=== PATIENT | female | born 1960 | race Caucasian/White ===

== ENCOUNTER 2016-04-28 09:20 | Emergency (ER) ==
[2016-04-28] MEDS ORDERED: ASPIRIN PO STA (09:41)
--- NOTE | 2016-04-28 09:53 | ED EKG INTERP ---
EKG Interpretation - EKG Time of EKG reading by physician:: 09:32 EKG Read and Signed by:: Lance Correa EKG Interpretation (*Must complete 3 of following elements*): Abnormal Rate: 84 Rhythm: NSR [place]: normal QRS: normal [place] Interval: normal ST Wave: non-specific ST changes
[2016-04-28 10:00] LABS: MANUAL DIFF NEEDED? NO
[2016-04-28 10:02] LABS: BASO% 0.2 % (0.0-0.8); EOS# 0.16 X1000 (0.0-0.7); EOS% 1.4 % (0.0-10.0); HEMATOCRIT 35.9 % (37.0-47.0); LYMPH# 1.01 X1000 (1.2-3.4); LYMPH% 8.8 % (20.5-51.1); MCH 29.1 PG (27-31); MCHC 33.4 g/dL (33-37); MCV 87.1 FL (81-99); MONO# 0.66 X1000 (0.11-0.59); MONO% 5.7 % (1.7-9.3); MPV 10.6 FL (7.4-10.4); NEUT% 83.9 % (42.2-75.2); PLT 195 X1000 (130-400); RBC 4.12 XMIL (4.2-5.4)
[2016-04-28 10:12] LABS: INR 0.95; PROTIME 10.1 Seconds (9.2-11.7); PTT 22.7 Seconds (22.0-36.0)
--- NOTE | 2016-04-28 10:35 | PROVIDER DOCUMENTATION ---
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 She is taking celexa for anxiety and has had a reflux procedure for gerd but syas that this is nothing like her gerd Chest Pain Radiation: reports: arms Quality of Pain: reports: sharp Onset/Duration: abrupt, just prior to arrival Timing: gone now Context/Activities at Onset: reports: none Modifying Factors: improves with: nothing Associated Symptoms: reports: dizziness Nitro Today/Relief: no nitro taken today Aspirin Treatment Today: no aspirin today Prior Chest Pain/Cardiac Workup: reports: no prior chest pain Similar Symptoms Previously?: No Recently Seen Here or By Another Healthcare Provider: No Review of Systems - Adult - REVIEW OF SYSTEMS - ADULT Constitutional: denies: chills, fever Eyes: denies: discharge, blurred vision Ears, Nose, Mouth & Throat: denies: hearing loss, nose pain, throat pain Cardiovascular: denies: chest pain, irregular heart rate, poor circulation Respiratory: denies: chronic cough, hemoptysis Gastrointestinal: denies: abdominal pain, frequent heartburn, rectal bleeding Genitourinary: denies: discharge, urinary retention Musculoskeletal: denies: bone pain, joint pain, muscle weakness Integumentary: denies: hair loss, nail changes, skin sores/ulcer Neurological: denies: headache/migraines, loss of balance, syncope Psychiatric: reports: anxiety Endocrine: denies: goiter, cold intolerance, heat intolerance Hematologic/Lymphatic: denies: low blood count, lymphedema Allergic/Immunologic: denies: eczema, frequent infections, hives Past History - Adult - PAST MEDICAL HISTORY-ADULT Gastrointestinal: reports: GERD - PRIOR SURGERIES/PROCEDURES Surgical/Procedure History: reports: EGD, colonoscopy, hysterectomy, breast, other (reflux surgery) Physical Exam-General - PHYSICAL EXAM-ADULT Initial Vital Signs Reviewed: Yes - CONSTITUTIONAL General Appearance: appears well, alert, no apparent distress - EYES Eyes: PERRL/EOMI, pink conjunctivae - HEAD, EARS, NOSE, MOUTH & THROAT HENMT: normocephalic/atraumatic, moist mucous membranes, normal ENT inspection, TMs normal, pharynx normal - NECK Neck: non-tender, full range of motion, supple, normal inspection - RESPIRATORY Respiratory: chest non-tender, lungs clear, normal breath sounds, no pleuratic chest pain, no respiratory distress, no accessory muscle use - CARDIOVASCULAR Cardiovascular: normal peripheral pulses, regular rate, rhythm, no edema, no gallop, no JVD, no murmur - CHEST (BREASTS) Chest/Breast: no tenderness - GASTROINTESTINAL (ABDOMEN) Abdominal Exam: normal bowel sounds, non tender, soft - LYMPHATIC Lymphatic: no adenopathy, axilla node tender - MUSCULOSKELETAL Back Exam: normal inspection, no CVA tenderness, no vertebral tenderness, CVA tenderness Extremity: normal range of motion, non-tender, normal gait, normal inspection - SKIN Integumentary: normal color, normal turgor, warm/dry - NEUROLOGIC 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, grossly normal, no motor/sensory deficits - PSYCHIATRIC Psych/Mental Status: normal mood/affect, normal thought content, normal thought process Progress - PLAN OF CARE/RESULTS Progress/Plan/Lab Results: Laboratory Tests 04/28/16 04/28/16 04/28/16 09:40 09:40 09:40 WBC 11.49 H RBC 4.12 L Hgb 12.0 Hct 35.9 L MCV 87.1 MCH 29.1 MCHC 33.4 RDW Std Deviation 12.9 Plt Count 195 MPV 10.6 H Immature Gran % (Auto) 0.0 Neut % (Auto) 83.9 H Lymph % (Auto) 8.8 L [place] % (Auto) 5.7 Eos % (Auto) 1.4 Baso % (Auto) 0.2 Immature Gran # (Auto) 0.00 Neut # (Auto) 9.64 H Lymph # (Auto) 1.01 L [place] # (Auto) 0.66 H Eos # (Auto) 0.16 Baso # (Auto) 0.02 PT INR PTT (Actin FS) D-Dimer 0.39 Sodium 138 Potassium 3.9 Chloride 99 Carbon Dioxide 25 Anion Gap 14 BUN 12 Creatinine 0.8 Estimated GFR/1.73 m2 > 60 BUN/Creatinine Ratio 15 Glucose 102 Calculated Osmolality 276 Calcium 9.0 Magnesium 1.9 Total Bilirubin 0.46 AST 16 ALT 13 Alkaline Phosphatase 62 Creatine Kinase 62 Troponin T Kmw-V-Ixgbdochrpe Pept Total Protein 6.6 Albumin 4.1 Globulin 2.5 Albumin/Globulin Ratio 1.6 04/28/16 04/28/16 04/28/16 09:40 09:40 09:40 WBC RBC Hgb Hct MCV MCH MCHC RDW Std Deviation Plt Count MPV Immature Gran % (Auto) Neut % (Auto) Lymph % (Auto) S[place]ent % (Auto) Eos % (Auto) Baso % (Auto) Immature Gran # (Auto) Neut # (Auto) Lymph # (Auto) S[place]ent # (Auto) Eos # (Auto) Baso # (Auto) PT 10.1 INR 0.95 PTT (Actin FS) 22.7 D-Dimer Sodium Potassium Chloride Carbon Dioxide Anion Gap BUN Creatinine Estimated GFR/1.73 m2 BUN/Creatinine Ratio Glucose Calculated Osmolality Calcium Magnesium Total Bilirubin AST ALT Alkaline Phosphatase Creatine Kinase Troponin T < 0.010 Ebf-K-Hgiwefnenpc Pept 45 Total Protein Albumin Globulin Albumin/Globulin Ratio Orders Category Date Time Status Cardiac Monitoring DIRECTED Care 04/28/16 09:41 Active Saline Loc NOW Care 04/28/16 09:41 Active CHEST-2 VIEWS [RAD] Stat Exams 04/28/16 09:41 Completed CBC WITH ELECTRONIC DIFF [HEME] Stat Lab 04/28/16 09:40 Completed CK PROFILE [SP CHEM] Stat Lab 04/28/16 09:40 Completed COMPREHENSIVE METABOLIC PANEL [CHEM] Stat Lab 04/28/16 09:40 Completed D-DIMER [CHEM] Stat Lab 04/28/16 09:40 Completed MAGNESIUM [CHEM] Stat Lab 04/28/16 09:40 Completed PRO B-NATRIURETIC PEPTIDE Stat Lab 04/28/16 09:40 Completed PROTIME WITH INR [COAG] Stat Lab 04/28/16 09:40 Completed PTT [COAG] Stat Lab 04/28/16 09:40 Completed TROPONIN T Stat Lab 04/28/16 09:40 Completed Aspirin Med 04/28/16 09:41 Discontinued 325 mg PO STAT STA Nitroglycerin Sl [Nitroglycerin] Med 04/28/16 11:14 Discontinued 0.4 mg SL NOW ONE EKG [EKG] Stat Ther 04/28/16 09:41 Draft Vital Signs Temp Pulse Resp BP Pulse Ox 04/28/16 11:32 91 H 20 108/68 95 04/28/16 11:20 78 21 131/74 98 04/28/16 09:46 98.9 F 80 16 124/80 98 No Known Allergies Allergy (Verified 04/28/16 10:01) Citalopram [Celexa] 40 mg PO DAILY 04/28/16 Laboratory 04/28/16 04/28/16 04/28/16 09:40 09:40 09:40 WBC RBC Hgb Hct MCV MCH MCHC RDW Std Deviation Plt Count MPV Immature Gran % (Auto) Neut % (Auto) Lymph % (Auto) [place] % (Auto) Eos % (Auto) Baso % (Auto) Immature Gran # (Auto) Neut # (Auto) Lymph # (Auto) [place] # (Auto) Eos # (Auto) Baso # (Auto) PT 10.1 INR 0.95 PTT (Actin FS) 22.7 D-Dimer Sodium Potassium Chloride Carbon Dioxide Anion Gap BUN Creatinine Estimated GFR/1.73 m2 BUN/Creatinine Ratio Glucose Calculated Osmolality Calcium Magnesium Total Bilirubin AST ALT Alkaline Phosphatase Creatine Kinase Troponin T < 0.010 Bkg-E-Aepsdhyiqyt Pept 45 Total Protein Albumin Globulin Albumin/Globulin Ratio 04/28/16 04/28/16 04/28/16 09:40 09:40 09:40 WBC 11.49 H RBC 4.12 L Hgb 12.0 Hct 35.9 L MCV 87.1 MCH 29.1 MCHC 33.4 RDW Std Deviation 12.9 Plt Count 195 MPV 10.6 H Immature Gran % (Auto) 0.0 Neut % (Auto) 83.9 H Lymph % (Auto) 8.8 L [place] % (Auto) 5.7 Eos % (Auto) 1.4 Baso % (Auto) 0.2 Immature Gran # (Auto) 0.00 Neut # (Auto) 9.64 H Lymph # (Auto) 1.01 L [place] # (Auto) 0.66 H Eos # (Auto) 0.16 Baso # (Auto) 0.02 PT INR PTT (Actin FS) D-Dimer 0.39 Sodium 138 Potassium 3.9 Chloride 99 Carbon Dioxide 25 Anion Gap 14 BUN 12 Creatinine 0.8 Estimated GFR/1.73 m2 > 60 BUN/Creatinine Ratio 15 Glucose 102 Calculated Osmolality 276 Calcium 9.0 Magnesium 1.9 Total Bilirubin 0.46 AST 16 ALT 13 Alkaline Phosphatase 62 Creatine Kinase 62 Troponin T Hwi-V-Dwwgzirvxri Pept Total Protein 6.6 Albumin 4.1 Globulin 2.5 Albumin/Globulin Ratio 1.6 Departure - Departure Time of Disposition Order: 12:09 DIAGNOSIS: Angina pectoris Disposition: HOME 01 Certified Medical Emergency: Emergent Condition: Stable Additional Instructions: call and make an appointment with cardiology for a cardiac evaluation for your presumed angina ED Follow Up Instructions: You have been treated by a care provider in the Emergency Department. These instructions are being provided to you so you can have an understanding of how to care for yourself upon discharge. Upon discharge from the Emergency Department, you are responsible for making arrangements for follow-up care by a physician of your choice. Take all prescribed medications as directed. Return to the Emergency Department immediately for any new or worsening symptoms. You may call the Physician Referral phone number at [phone] to obtain a list of Physicians who are taking new patients. Prescriptions: Nitroglycerin 0.4 mg SL PRN PRN #[email or web address] [email or web address] PRN Reason: Chest Pain
[2016-04-28 10:48] LABS: AGAP 14; ALBUMIN 4.1 g/dL (3.5-5.0); ALKALINE PHOSPHATASE 62 U/L (32-104); BUN 12 mg/dL (8-22); CHLORIDE 99 mmol/L (98-107); CK PROFILE 62 U/L (24-173); COSMO 276; GOT 16 U/L (10-30); GPT 13 U/L (10-36); MAGNESIUM 1.9 mg/dL (1.5-2.7); POTASSIUM 3.9 mmol/L (3.5-5.1); SODIUM 138 mmol/L (136-145); TCO2 25 mmol/L (25-35); TOTAL BILIRUBIN 0.46 mg/dL (0.20-1.00); TOTAL PROTEIN 6.6 g/dL (6.3-8.3)
--- NOTE | 2016-04-28 10:52 | EKG Report ---
Test Performed on : 04/28/2016 09:32:15 AM Test Reason : Chest Pain Blood Pressure : / mmHG Vent. Rate : 084 BPM Atrial Rate : 084 BPM P-R Int : 120 ms QRS Dur : 070 ms QT Int : 354 ms P-R-T Axes : 050 031 043 degrees QTc Int : 418 ms Normal sinus rhythm. Nonspecific ST abnormality Abnormal ECG When compared with ECG of 22-MAR-2012 13:35, No significant change was found Unconfirmed Result
[2016-04-28] MEDS ORDERED: NITROGLYCERIN SL ONE (11:14)
--- NOTE | 2016-04-28 11:23 | Diag Imaging Result Document ---
PROCEDURE NAME: CHEST-2 VIEWS - 04/28/2016 PA AND LATERAL RADIOGRAPH OF THE CHEST: COMPARISON: 03/22/2012. FINDINGS: The lungs are grossly clear. There is no discrete pleural fluid collection or evidence of pneumothorax. The cardiomediastinal silhouette and upper airway are grossly unremarkable. IMPRESSION: No evidence of acute chest pathology.
[2016-04-28 12:23] VITALS: BP 120/77
== END 2016-04-28 12:26 | disposition home or self-care (01) ==
LOC: ED 09:20
DX: I20.9 Angina pectoris, unspecified (principal); R07.9 Chest pain, unspecified; R42 Dizziness and giddiness; M79.603 Pain in arm, unspecified; F41.9 Anxiety disorder, unspecified; K21.9 Gastro-esophageal reflux disease without esophagitis; Z79.899 Other long term (current) drug therapy
CPT/HCPCS: 71020; 80053; 82550; 83735; 83880; 84484; 85025; 85379; 85610; 85730; 93005; 99283